=== PATIENT | female | born 1980 | race Caucasian/White ===

== ENCOUNTER 2018-11-01 18:45 | Inpatient (IN) | payer SELFPAY ==
[2018-11-01] MEDS ORDERED: NA CHLORIDE 0.9% 1,000 ML ONE (19:34)
[2018-11-01] MEDS ORDERED: IBUPROFEN 400 MG TAB ONE (19:34)
--- NOTE | 2018-11-01 19:37 | RAD REPORT ---
EXAM DESCRIPTION: Shi Single View11/01/2018 7:31 pm CLINICAL HISTORY: Chest pain COMPARISON: none FINDINGS: The lungs appear clear of acute infiltrate. The heart is normal size IMPRESSION: No acute abnormalities displayed
[2018-11-01 20:36] LABS: Absolute Lymphocytes (CBC) 3.2 K/uL (0.7-4.9); Absolute Monocytes 1.1 K/uL (0.1-1.3); Absolute Neutrophil 7.4 K/uL (1.8-8.0); Basophils % 1.1 % (0-1.3); Eosinophils % 4.6 % (0-4.4); Hematocrit 43.5 % (36.0-45.0); Lymphocytes % 25.5 % (15.3-44.8); MPV 7.7 fL (7.6-11.3); RBC Red Blood Cell Count 4.93 M/uL (3.86-4.86)
[2018-11-01] MEDS ORDERED: METOPROLOL TAR 25 MG TAB ONE (20:37)
[2018-11-01] MEDS ORDERED: ASPIRIN 81 MG CHEWABLE TABLET ONE (20:37)
[2018-11-01 20:55] LABS: BUN Blood Urea Nitrogen 14 mg/dL (7-18); Bicarbonate 27 mmol/L (21-32); Glucose Level 83 mg/dL (74-106); NT PRO-BNP 122 pg/mL (<125); Potassium 3.7 mmol/L (3.5-5.1); Sodium Level 141 mmol/L (136-145); Troponin (Emerg Dept Use Only) < 0.02 ng/mL (0.0-0.045)
--- NOTE | 2018-11-01 22:02 | EDPHYS ---
Physician Documentation [facility] Name: Brit Jenkins Age: 38 yrs Sex: Female : 1980 Arrival Date: 11/01/2018 Time: 18:46 Bed 2 Private MD: ED Physician Willem Jimenez HPI: 11/01 21:58 This 38 yrs old Female presents to ER via Ambulatory with complaints of rn Dizziness, Elevated Heart Rate, Back Pain. 21:58 The patient presents with a history of heart racing. Onset: The symptoms/episode rn began/occurred today. Duration: The patient or guardian reports multiple episodes. Modifying factors: The symptoms are aggravated by nothing. The symptoms are alleviated by nothing. Severity of symptoms: At their worst the symptoms were moderate in the emergency department the symptoms have improved. The patient has not experienced similar symptoms in the past. Reports began today with palpitations, dizziness, sob, intermittent episodes, no previous cardiac history and no famhx of early cardiac problems, currently feels fine.. 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: 23:31 LMP N/A - Irregular menses jd3 Historical: - Allergies: 18:53 methylergonovine maleate; sv 18:53 pseudoephedrine HCl; sv 18:53 dexamethasone sod phosphate; sv 18:53 Ciprofloxacin HCl; sv 18:53 Cephalexin Monohydrate; sv 18:53 Latex, Natural Rubber; sv 18:53 Sulfa (Sulfonamide Antibiotics); sv 18:53 trimethoprim; sv - Home Meds: 23:29 Benadryl 25 mg Oral cap 2 caps nightly [Active]; risperidone 2 mg oral tab 1 tab 2 fc times per day [Active]; Zantac 150 mg Oral tab 1 tab 2 times per day [Active]; Shyla Allergy 180 mg oral tab 1 tab twice a day [Active]; - PMHx: 23:29 urticaria; Fibromyalgia; Insomnia; Angioedema; fc - PSHx: 18:53 D \T\ C; back; ; sv - Immunization history:: Adult Immunizations unknown. - Social history:: Smoking status: unknown. - Ebola Screening: : Patient negative for fever greater than or equal to 101.5 degrees Fahrenheit, and additional compatible Ebola Virus Disease symptoms. - Family history:: not pertinent. - Hospitalizations: : No recent hospitalization is reported. ROS: 21:58 Constitutional: Negative for fever, chills, and weight loss, Eyes: Negative for injury, rn pain, redness, and discharge, Neck: Negative for injury, pain, and swelling, Cardiovascular: Negative for edema, Respiratory: Negative for shortness of breath, cough, wheezing, and pleuritic chest pain, Abdomen/GI: Negative for abdominal pain, nausea, vomiting, diarrhea, and constipation, MS/Extremity: Negative for injury and deformity, Skin: Negative for injury, rash, and discoloration, Neuro: Negative for headache, numbness, tingling, and seizure. Exam: 21:58 Constitutional: This is a well developed, well nourished patient who is awake, alert, rn and in no acute distress. Head/Face: Normocephalic, atraumatic. Eyes: Pupils equal round and reactive to light, extra-ocular motions intact. Lids and lashes normal. Conjunctiva and sclera are non-icteric and not injected. Cornea within normal limits. Periorbital areas with no swelling, redness, or edema. Cardiovascular: Tachycardic, irregular, no murmur Respiratory: Lungs have equal breath sounds bilaterally, clear to auscultation Abdomen/GI: soft, non-tender Skin: Warm, dry with normal turgor. Normal color with no rashes, no lesions, and no evidence of cellulitis. MS/ Extremity: Pulses equal, no cyanosis. Neurovascular intact. Full, normal range of motion. Equal circumference. Neuro: Awake and alert, GCS 15, oriented to person, place, time, and situation. Cranial nerves II-XII grossly intact. Motor strength 5/5 in all extremities. Sensory grossly intact. Vital Signs: 18:54 BP 123 / 85; Pulse 107; Resp 20; Temp 99.3; Pulse Ox 97% ; Weight 117.93 kg; Height 5 sv ft. 4 in. (162.56 cm); Pain 4/10; 19:15 BP 100 / 73; Pulse 101; Resp 18 S; Pulse Ox 97% on R/A; jd3 20:13 BP 122 / 81; Pulse 115; Resp 19 S; Pulse Ox 99% on R/A; jd3 21:07 BP 109 / 66; Pulse 93; Resp 18 S; Pulse Ox 97% on R/A; jd3 22:00 BP 102 / 67; Pulse 82; Resp 16 S; Pulse Ox 97% on R/A; jd3 22:30 BP 112 / 85; Pulse 105; Resp 16 S; Pulse Ox 97% on R/A; jd3 23:31 BP 110 / 70; Pulse 85; Resp 16 S; Pulse Ox 97% on R/A; jd3 18:54 Body Mass Index 44.63 (117.93 kg, 162.56 cm) sv MDM: 19:02 Patient medically screened. rn 21:58 Differential diagnosis: arrythmia, dehydration, stress disorder. Data reviewed: vital rn signs, nurses notes, lab test result(s), EKG, radiologic studies, plain films, and as a result, I will admit patient. Counseling: I had a detailed discussion with the patient and/or guardian regarding: the historical points, exam findings, and any diagnostic results supporting the discharge/admit diagnosis, lab results, radiology results, the need for further work-up and treatment in the hospital. Response to treatment: the patient's symptoms have mildly improved after treatment, and as a result, I will admit patient. Admission orders: after a detailed discussion of the patient's condition and case, the admit orders are written by me. 11/01 19:17 Order name: Basic Metabolic Panel; Complete Time: 21: rn 11/01 19:17 Order name: CBC with Diff; Complete Time: : rn 11/01 19:17 Order name: NT PRO-BNP; Complete Time: : 11/01 19:17 Order name: Troponin (emerg Dept Use Only); Complete Time: :30 11/01 19:17 Order name: TSH; Complete Time: : rn 11/01 19:17 Order name: T4 Free; Complete Time: :30 rn 11/01 19:17 Order name: [place] Screen Profile; Complete Time: 21:30 rn 11/01 19:17 Order name: Flu rn 11/01 19:17 Order name: Strep rn 11/01 19:18 Order name: Blood Culture Adult (2) rn 11/01 22:09 Order name: Urine Dipstick--Ancillary (enter results) mi 11/01 22:18 Order name: Throat Culture [facility] 11/01 23:00 Order name: Lipid Profile [facility] 11/01 23:00 Order name: Lipid Profile [facility] 11/01 19:02 Order name: EKG; Complete Time: 19:02 sv 11/01 19:02 Order name: EKG - Nurse/Tech; Complete Time: 19:17 sv 11/01 19:17 Order name: XRAY Chest (1 view); Complete Time: 19:48 rn 11/01 22:59 Order name: CONS Physician Consult [facility] 11/01 22:59 Order name: Heart Healthy [facility] 11/01 22:59 Order name: EKG Electrocardiogram [facility] 11/01 23:00 Order name: EKG Electrocardiogram [facility] 11/01 23:00 Order name: Troponin I [facility] 11/01 23:00 Order name: Troponin I [facility] 11/01 23:00 Order name: Troponin I [facility] 11/01 23:01 Order name: T4 Free [facility] 11/01 23:01 Order name: Thyroid Stimulating Hormone [facility] 11/01 19:17 Order name: Cardiac monitoring; Complete Time: 19:19 rn 11/01 19:17 Order name: IV Saline Lock; Complete Time: 21:50 rn 11/01 19:17 Order name: Labs collected and sent; Complete Time: 21:50 rn 11/01 19:17 Order name: O2 Per Protocol; Complete Time: 19:19 rn 11/01 19:17 Order name: O2 Sat Monitoring; Complete Time: 19:19 rn Administered Medications: 19:50 Drug: Motrin 800 mg Route: PO; jd3 23:32 Follow up: Response: No adverse reaction jd3 20:34 Drug: Metoprolol 25 mg Route: PO; jd3 23:33 Follow up: Response: No adverse reaction jd3 20:34 Drug: Aspirin Chewable Tablet 324 mg Route: PO; jd3 23:33 Follow up: Response: No adverse reaction jd3 21:37 Drug: NS 0.9% 1000 ml Route: IV; Rate: 1000 ml; Site: right antecubital; jd3 Disposition: 11/01/18 22:00 Hospitalization ordered by Dee Rossi for Inpatient Admission. Preliminary diagnosis are Paroxysmal atrial fibrillation, Chest pain, unspecified. - Bed requested for Telemetry/MedSurg (Inpatient). - Status is Inpatient Admission. ed1 - Condition is Stable. - Problem is new. - Symptoms have improved. UTI on Admission? No Signatures: Dispatcher [employer] Nichole Palma RN RN Lara Zamora, RN RN Willem Jimenez MD MD rn Riggs, Erika RN RN ed1 Anahi Fuller, RN RN Luis Fernando Fisher, RN RN jd3 Corrections: (The following items were deleted from the chart) 23:21 22:00 Hospitalization Ordered by Dee Rossi MD for Inpatient Admission. Preliminary cg diagnosis is Paroxysmal atrial fibrillation; Chest pain, unspecified. Bed requested for Telemetry/MedSurg (Inpatient). Status is Inpatient Admission. Condition is Stable. Problem is new. Symptoms have improved. UTI on Admission? No. rn 23:29 18:53 PMHx: None; [facility] 23:46 23:21 11/01/2018 22:00 Hospitalization Ordered by Dee Rossi MD for Inpatient ed1 Admission. Preliminary diagnosis is Paroxysmal atrial fibrillation; Chest pain, unspecified. Bed requested for Telemetry/MedSurg (Inpatient). Status is Inpatient Admission. Condition is Stable. Problem is new. Symptoms have improved. UTI on Admission? No. cg
--- NOTE | 2018-11-01 22:02 | ER ---
Nurse's Notes [facility] Name: Brit Jenkins Age: 38 yrs Sex: Female : 1980 Arrival Date: 11/01/2018 Time: 18:46 Bed 2 Private MD: Diagnosis: Paroxysmal atrial fibrillation;Chest pain, unspecified Presentation: 11/01 18:51 Presenting complaint: Patient states: midsternal chest pain that radiates to the back sv in between shoulder blade, SOB, dizziness x 3 days, "heart racing off and on started today.". Transition of care: patient was not received from another setting of care. Onset of symptoms was November 01, 2018. Care prior to arrival: None. 18:51 Method Of Arrival: Ambulatory sv 18:51 Acuity: MONIKA 3 sv 20:01 Risk Assessment: Do you want to hurt yourself or someone else? Patient reports no jd3 desire to harm self or others. Initial Sepsis Screen: Does the patient meet any 2 criteria? HR > 90 bpm. No. Patient's initial sepsis screen is negative. Does the patient have a suspected source of infection? No. Patient's initial sepsis screen is negative. Triage Assessment: 18:54 General: Appears in no apparent distress. uncomfortable, obese, Behavior is calm, sv cooperative, appropriate for age. Pain: Complains of pain in mid-sternal area Pain radiates to thoracic area Pain currently is 4 out of 10 on a pain scale. Neuro: Level of Consciousness is awake, alert, obeys commands, Oriented to person, place, time, situation, Moves all extremities. Full function Gait is steady. Respiratory: Respiratory effort is even, unlabored, Respiratory pattern is regular, symmetrical. Derm: Skin is pink, warm \\T\\ dry. 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 LMP N/A - Irregular menses jd3 Historical: - Allergies: 18:53 methylergonovine maleate; sv 18:53 pseudoephedrine HCl; sv 18:53 dexamethasone sod phosphate; sv 18:53 Ciprofloxacin HCl; sv 18:53 Cephalexin Monohydrate; sv 18:53 Latex, Natural Rubber; sv 18:53 Sulfa (Sulfonamide Antibiotics); sv 18:53 trimethoprim; sv - Home Meds: 23:29 Benadryl 25 mg Oral cap 2 caps nightly [Active]; risperidone 2 mg oral tab 1 tab 2 fc times per day [Active]; Zantac 150 mg Oral tab 1 tab 2 times per day [Active]; Shyla Allergy 180 mg oral tab 1 tab twice a day [Active]; - PMHx: 23:29 urticaria; Fibromyalgia; Insomnia; Angioedema; fc - PSHx: 18:53 D \\T\\ C; back; ; sv - Immunization history:: Adult Immunizations unknown. - Social history:: Smoking status: unknown. - Ebola Screening: : Patient negative for fever greater than or equal to 101.5 degrees Fahrenheit, and additional compatible Ebola Virus Disease symptoms. - Family history:: not pertinent. - Hospitalizations: : No recent hospitalization is reported. Screenin:06 Abuse screen: Denies threats or abuse. Nutritional screening: No deficits noted. jd3 Tuberculosis screening: No symptoms or risk factors identified. Fall Risk Ambulatory Aid- None/Bed Rest/Nurse Assist (0 pts). Gait- Normal/Bed Rest/Wheelchair (0 pts) Mental Status- Oriented to own ability (0 pts). Total Dean Fall Scale indicates No Risk (0-24 pts). Assessment: 19:05 General: Appears uncomfortable, Behavior is cooperative, appropriate for age, anxious. jd3 Pain: Complains of pain in chest Quality of pain is described as pressure. Neuro: Level of Consciousness is awake, alert, obeys commands, Oriented to person, place, time, situation. Cardiovascular: Heart tones S1 S2 present Capillary refill < 3 seconds Patient's skin is warm and dry. Rhythm is irregular. Respiratory: Reports shortness of breath Airway is patent Respiratory effort is even, unlabored, Respiratory pattern is regular, symmetrical, Breath sounds are clear bilaterally. GI: No signs and/or symptoms were reported involving the gastrointestinal system. : No signs and/or symptoms were reported regarding the genitourinary system. EENT: No signs and/or symptoms were reported regarding the EENT system. Derm: Skin is intact, Skin is dry, Skin is normal, Skin temperature is warm. Musculoskeletal: Circulation, motion, and sensation intact. Range of motion: intact in all extremities. 20:08 Reassessment: Patient appears in no apparent distress at this time. No changes from jd3 previously documented assessment. Patient and/or family updated on plan of care and expected duration. Pain level reassessed. Patient is alert, oriented x 3, equal unlabored respirations, skin warm/dry/pink. 21:06 Reassessment: Patient appears in no apparent distress at this time. No changes from jd3 previously documented assessment. Patient and/or family updated on plan of care and expected duration. Pain level reassessed. Patient is alert, oriented x 3, equal unlabored respirations, skin warm/dry/pink. 22:05 Reassessment: Patient appears in no apparent distress at this time. Patient and/or jd3 family updated on plan of care and expected duration. Pain level reassessed. Patient is alert, oriented x 3, equal unlabored respirations, skin warm/dry/pink. 22:44 Reassessment: Patient appears in no apparent distress at this time. Patient and/or jd3 family updated on plan of care and expected duration. Pain level reassessed. Patient is alert, oriented x 3, equal unlabored respirations, skin warm/dry/pink. 23:32 Reassessment: Patient appears in no apparent distress at this time. Patient and/or jd3 family updated on plan of care and expected duration. Pain level reassessed. Patient is alert, oriented x 3, equal unlabored respirations, skin warm/dry/pink. Patient denies pain at this time. Vital Signs: 18:54 BP 123 / 85; Pulse 107; Resp 20; Temp 99.3; Pulse Ox 97% ; Weight 117.93 kg; Height 5 sv ft. 4 in. (162.56 cm); Pain 4/10; 19:15 BP 100 / 73; Pulse 101; Resp 18 S; Pulse Ox 97% on R/A; jd3 20:13 BP 122 / 81; Pulse 115; Resp 19 S; Pulse Ox 99% on R/A; jd3 21:07 BP 109 / 66; Pulse 93; Resp 18 S; Pulse Ox 97% on R/A; jd3 22:00 BP 102 / 67; Pulse 82; Resp 16 S; Pulse Ox 97% on R/A; jd3 22:30 BP 112 / 85; Pulse 105; Resp 16 S; Pulse Ox 97% on R/A; jd3 23:31 BP 110 / 70; Pulse 85; Resp 16 S; Pulse Ox 97% on R/A; jd3 18:54 Body Mass Index 44.63 (117.93 kg, 162.56 cm) ED Course: 18:46 Patient arrived in ED. as 18:52 Triage completed. sv 18:54 Arm band placed on. sv 19:02 Willem Jimenez MD is Attending Physician. rn 19:17 Luis Fernando Fisher RN is Primary Nurse. jd3 19:31 XRAY Chest (1 view) In Process Unspecified. EDMS 19:55 Missed attempt(s): 20 gauge in right antecubital area. Bleeding controlled, band aid jd3 applied, catheter tip intact. 20:11 Patient has correct armband on for positive identification. Bed in low position. Call jd3 light in reach. Side rails up X 1. Adult w/ patient. 20:11 child monitor on. Pulse ox on. NIBP on. jd3 20:43 Missed attempt(s): 22 gauge in left hand. Missed attempt(s): 22 gauge in left hand. lp1 21:30 Inserted 18 gauge 10 cm midline to right basilic vein on first attempt. Line with good fc blood return and flushes well. Pt tolerated it well. 22:00 Dee Rossi MD is Hospitalizing Provider. rn 23:30 No provider procedures requiring assistance completed. Patient admitted, IV remains in jd3 place. Administered Medications: 19:50 Drug: Motrin 800 mg Route: PO; jd3 23:32 Follow up: Response: No adverse reaction jd3 20:34 Drug: Metoprolol 25 mg Route: PO; jd3 23:33 Follow up: Response: No adverse reaction jd3 20:34 Drug: Aspirin Chewable Tablet 324 mg Route: PO; jd3 23:33 Follow up: Response: No adverse reaction jd3 21:37 Drug: NS 0.9% 1000 ml Route: IV; Rate: 1000 ml; Site: right antecubital; jd3 Outcome: 22:00 Decision to Hospitalize by Provider. rn 23:30 Admitted to Tele accompanied by tech, via wheelchair, room 219, with chart, Report jd3 called to Dino DAWKINS 23:30 Condition: stable 23:30 Instructed on the need for admit, Demonstrated understanding of instructions. 23:46 Patient left the ED. ed1 Signatures: Dispatcher [employer] EDMS Nichole Floyd RN RN sv Chretien, Felicia, RN RN fc Martinez, Amelia as Nieto, Roman, MD MD rn Riggs, Ane, RN RN ed1 Noelle Garrett RN RN lp1 Luis Fernando Fisher RN RN jd3 Corrections: (The following items were deleted from the chart) 20:10 20:10 BP 100 / 73; Pulse 101bpm; Resp 18bpm; Spontaneous; Pulse Ox 97% RA; jd3 jd3 23:29 18:53 PMHx: None; sv fc
[2018-11-01 22:19] LABS: Urine Blood NEGATIVE (NEG); Urine Glucose NEGATIVE (NEG); Urine Protein NEGATIVE (NEG)
[2018-11-01] MEDS ORDERED: ACETAMINOPHEN 500 MG TAB PO PRN (22:53)
[2018-11-01] MEDS ORDERED: ALPRAZOLAM 0.25 MG TABLET PO PRN (22:53)
[2018-11-01] MEDS ORDERED: MORPHINE 4 MG/ML SYR IV PRN (22:53)
[2018-11-01] MEDS: METOPROLOL TAR 50 MG TAB PO SCH (23:00)
[2018-11-02 00:01] VITALS: BMI 47.5
[2018-11-02] MEDS ORDERED: METOPROLOL TAR 25 MG TAB PO ONE (00:27)
[2018-11-02 03:42] VITALS: O2SAT 96
[2018-11-02 05:39] VITALS: BP 101/54; TEMP 96.8
--- NOTE | 2018-11-02 05:50 | EKG ---
Test Date: 2018-11-01 Test Time: 20:00:03 Associate Professor Of Kinesiology: HEMANT MEASUREMENT RESULTS: Intervals: Rate: 161 IN: QRSD: 78 QT: 254 QTc: 415 [place]iskey: P: IN: QRS: 77 T: -30 INTERPRETIVE STATEMENTS: Supraventricular tachycardia with termination and resumption of sinus rhythm Possible Anterior infarct, age undetermined Abnormal ECG Compared to ECG 11/01/2018 19:00:40 Myocardial infarct finding now present Supraventricular tachycardia is now present Sinus tachycardia no longer present Electronically Signed On 11-02-18 05:50:02 MACHINE JOINER CEMENTER by Isaias Navarro
--- NOTE | 2018-11-02 05:51 | EKG ---
Test Date: 2018-11-01 Test Time: 19:00:40 Lens Shaper Grinder: HEMANT MEASUREMENT RESULTS: Intervals: Rate: 112 ME: 126 QRSD: 80 QT: 320 QTc: 436 [place]den: P: 41 ME: 126 QRS: 118 T: 37 INTERPRETIVE STATEMENTS: Sinus tachycardia Low voltage QRS Left posterior fascicular block Abnormal ECG No previous ECG available for comparison Electronically Signed On 11-02-18 05:50:18 PAIN COORDINATOR by Isaias Navarro
[2018-11-02] MEDS ORDERED: INFLUENZA VACCINE (for 3y+) 0.5 ML DOSE IMVAC ONE (08:00)
[2018-11-02] MEDS: METOPROLOL TAR 50 MG TAB PO SCH (08:57)
[2018-11-02] MEDS ORDERED: ASPIRIN EC 81 MG TAB PO SCH (09:00)
[2018-11-02] MEDS ORDERED: ENOXAPARIN 100 MG/ML SYR SQ SCH (09:00)
[2018-11-02] MEDS ORDERED: RISPERIDONE 1 MG TABLET PO SCH (09:00)
[2018-11-02 12:01] LABS: Barbiturates NEGATIVE (NEGATIVE); Benzodiazepines NEGATIVE (NEGATIVE); Cocaine NEGATIVE (NEGATIVE); METHAMPHETAM NEGATIVE (NEGATIVE); Methadone NEGATIVE (NEGATIVE); Opiates NEGATIVE (NEGATIVE); Phencyclidine NEGATIVE (NEGATIVE); THC Cannibis NEGATIVE (NEGATIVE)
--- NOTE | 2018-11-02 12:11 | CON ---
Chief Complaint: Heart racing. History Of Present Illness: Mrs. Jenkins came to the hospital. She appeared to be in SVT. It is possible that it was atrial flutter, but we saw an EKG when it terminated. I would think this is [place] variety AV node reentrant SVT. The patient has a history of heart fluttering and she has never sought attention before. Yesterday, she was under more distress, drinking more coffee than usual, sl eeping less, went into rhythm. Now, she is in sinus rhythm and feels back to normal. She does not h ave diabetes. She has hypertension, but usually, her blood pressure is good and presently she is not on an antihypertensive. She takes Risperdal, ranitidine, Shyla, and diphenhydramine. She has an allergy to cephalexin and Cipro. She uses tobacco. She is morbidly obese. Physical Examination: Vital Signs: 5 feet 4, 276 pounds, blood pressure 101/54, temperature 96.8. HEENT: Normal. Lungs: Clear. Heart: Within normal limits. Abdomen: Soft. Extremities: Normal. Normal pulses. Impression: Mrs. Jenkins has paroxysmal supraventricular tachycardia. I would like to see her go home with the pill in the pocket program of metoprolol 50 mg, not the slow release type to be used i f she has a spell. If she sees me in followup, we will discuss the pros and cons of continuing that therapy versus undergoing an ablation. At this point, I think s he is ready to be discharged home. PRASANNA/SHIRA Voice ID: [id number] Report ID: [id number]
--- NOTE | 2018-11-02 12:19 | ECHO ---
HEIGHT: 5 ft 4 in WEIGHT: 276 lb 14.4 oz DATE OF STUDY: 11/02/[address]: Dee Rossi MD 2-DIMENSIONAL: YES M.MODE: YES DOPPLER: YES COLOR FLOW: YES TDS: NO PORTABLE: NO DEFINITY: NO BUBBLE STUDY: NO DIAGNOSIS: ATRIAL FIBRILLATION CARDIAC HISTORY: CATHERIZATION: NO SURGERY: NO PROSTHETIC VALVE: NO PACEMAKER: NO MEASUREMENTS (cm) DIASTOLIC (NORMALS) SYSTOLIC (NORMALS) IVSd 1.1 (0.6-1.2) LA Diam 3.5 (1.9-4.0) LVEF 57% LVIDd 5.0 (3.5-5.7) LVIDs 3.5 (2.0-3.5) %FS 30% LVPWd 1.0 (0.6-1.2) Ao Diam 2.7 (2.0-3.7) 2 DIMENSIONAL ASSESSMENT: RIGHT ATRIUM: NORMAL LEFT ATRIUM: NORMAL RIGHT VENTRICLE: NORMAL LEFT VENTRICLE: NORMAL TRICUSPID VALVE: NORMAL MITRAL VALVE: NORMAL PULMONIC VALVE: NORMAL AORTIC VALVE: NORMAL PERICARDIAL EFFUSION: NONE AORTIC ROOT: NORMAL LEFT VENTRICULAR WALL MOTION: NORMAL DOPPLER/COLOR FLOW: NORMAL COMMENTS: NORMAL 2D ECHOCARDIOGRAM WITH DOPPLER. TECHNOLOGIST: Marc WATSON
--- NOTE | 2018-11-02 12:21 | EKG ---
Test Date: 2018-11-02 Test Time: 00:45:01 Nurse Recruiter: RT MEASUREMENT RESULTS: Intervals: Rate: 88 OH: 146 QRSD: 92 QT: 356 QTc: 430 Gilchrist: P: 22 OH: 146 QRS: 80 T: 20 INTERPRETIVE STATEMENTS: Normal sinus rhythm Low voltage QRS Cannot rule out Anterior infarct, age undetermined Abnormal ECG Compared to ECG 11/01/2018 20:00:03 Low QRS voltage now present Supraventricular tachycardia no longer present Myocardial infarct finding still present Electronically Signed On 11-02-18 12:20:47 MECHANICAL DESIGN ENGINEER by Isaias Navarro
--- NOTE | 2018-11-02 16:00 | P.SSS ---
Patient History Date of Service: 11/02/18 History of Present Illness: Mrs. Jenkins came to the hospital. She appeared to be in SVT. The patient has a history of heart fluttering and she has never sought attention before. Yesterday, she was under more distress, drinking more coffee than usual, sleeping less, went into rhythm. Now, she is in sinus rhythm and feels back to normal. She does not have diabetes. She has hypertension, but usually, her blood pressure is good and presently she is not on an antihypertensive. She takes Risperdal, ranitidine, Shyla, and diphenhydramine. She has an allergy to cephalexin and Cipro. She uses tobacco. She is morbidly obese. Allergies cephalexin monohydrate [From Keflex] Allergy (Verified 11/02/18 00:02) Hives/Rash ciprofloxacin [From Cipro] Allergy (Verified 11/02/18 00:02) Hives/Rash ciprofloxacin HCl [From Cipro] Allergy (Verified 11/02/18 00:02) Hives/Rash dexamethasone [From Decadron] Allergy (Verified 11/02/18 00:02) Shortness of breath dexamethasone sod phosphate [From Decadron] Allergy (Verified 11/02/18 00:02) Shortness of breath Latex, Natural Rubber Allergy (Verified 11/02/18 00:02) Rash methylergonovine maleate [From Methergine] Allergy (Verified 11/02/18 00:02) Anaphylaxis pseudoephedrine HCl [From Sudafed] Allergy (Verified 11/02/18 00:02) Nausea/Vomiting Sulfa (Sulfonamide Antibiotics) Allergy (Verified 11/02/18 00:02) Nausea/Vomiting sulfamethoxazole [From Bactrim] Allergy (Verified 11/02/18 00:02) Nausea/Vomiting trimethoprim [From Bactrim] Allergy (Verified 11/02/18 00:02) Itching/Hives/Rash Ephedrine Sulfate Allergy (Uncoded 11/02/18 00:02) Unknown MMR vaccine Allergy (Uncoded 11/02/18 00:02) Anaphylaxis Home Medications: Risperidone [Risperdal] 2 mg PO BID 11/01/18 Metoprolol Tartrate [Lopressor*] 25 mg PO BID #60 tab 11/02/18 - Past Medical/Surgical History Has patient received pneumonia vaccine in the past: No Diabetic: No -: insomnia -: fibromyalgia -: angioedema -: Urticaria -: d & C -: back surg -: - Social History Smoking Status: Current every day smoker Alcohol use: Yes CD- Drugs: No Caffeine use: Yes Place of Residence: Home Review of Systems 10-point ROS is otherwise unremarkable Physical Examination - Vital Signs Temperature: 96.8 F Blood Pressure: 101/54 Pulse: 80 Respirations: 18 Pulse Ox (%): 95 - Physical Exam General: Alert, In no apparent distress HEENT: Atraumatic, PERRLA, Mucous membr. moist/pink, EOMI, Sclerae nonicteric Neck: Supple, 2+ carotid pulse no bruit, No LAD, Without JVD or thyroid abnormality Respiratory: Clear to auscultation bilaterally, Normal air movement Cardiovascular: Regular rate/rhythm, Normal S1 S2 Gastrointestinal: Normal bowel sounds, No tenderness Musculoskeletal: No tenderness Integumentary: No rashes Neurological: Normal gait, Normal speech, Normal strength at 5/5 x4 extr, Normal tone, Normal affect Lymphatics: No axilla or inguinal lymphadenopathy - Studies Laboratory Data (last 24 hrs) 11/01/18 20:16: WBC 12.4 H, Hgb 14.6, Hct 43.5, Plt Count 345 11/01/18 20:16: Sodium 141, Potassium 3.7, BUN 14, Creatinine 0.80, Glucose 83 Microbiology Data (last 24 hrs): 11/01/18 21:30 Nasopharnyx Influenza Type A Antigen Screen - Final 11/01/18 21:30 Nasopharnyx Influenza Type B Antigen Screen - Final 11/01/18 21:30 Throat Group A Streptococcus Rapid Screen - Final - Diagnosis (Problem(s)) (1) Atrial fibrillation with rapid ventricular response Status: Acute (2) Bipolar 2 disorder Status: Acute Treatment Summary: Overall during the hospital stay patient remained stable Patient was initially admitted to the hospital for having palpitation was found to have SVT most likely atrial flutter. Cardiology was consulted echocardiogram was done which was within normal limits. Cardiology recommended the patient be discharged home on metoprolol 50 mg daily p.r.n. and her home medications be adjusted that she takes for muscle relaxer and bipolar disease. Patient was asked to continue her Risperdal however discontinue taking her Benadryl another medication that she used to sleep. Patient was also asked to follow up with cardiology in about 1-2 days post discharge. Patient has a score is less than 2 at this time. Patient does not need any anti coagulation at this time as she might just have paroxysmal atrial fibrillation. Patient to follow up with primary care provider and cardiology for closer monitoring and chronic management of her paroxysmal AFib. - Disposition Condition: GOOD Diet: Regular Activity: Ad noemí
--- NOTE | 2018-11-02 20:32 | P.HP ---
Certification for Inpatient Patient admitted to: Inpatient With expected LOS: >2 Midnights Patient will require the following post-hospital care: None Practitioner: I am a practitioner with admitting privileges, knowledge of patient current condition, hospital course, and medical plan of care. Services: Services provided to patient in accordance with Admission requirements found in Title 42 Section 412.3 of the Code of Federal Regulations Patient History Date of Service: 11/01/18 Reason for admission: SVT versus atrial fibrillation History of Present Illness: patient is a 38-year-old female came to the hospital with palpitations. She was short of breath and difficulty breathing. She came in the hospital for further evaluation. She was found to be in AFib versus SVT. Our EKG strip that we had showed sinus tach. She was admitted to the hospital for further evaluation. Allergies cephalexin monohydrate [From Keflex] Allergy (Verified 11/02/18 00:02) Hives/Rash ciprofloxacin [From Cipro] Allergy (Verified 11/02/18 00:02) Hives/Rash ciprofloxacin HCl [From Cipro] Allergy (Verified 11/02/18 00:02) Hives/Rash dexamethasone [From Decadron] Allergy (Verified 11/02/18 00:02) Shortness of breath dexamethasone sod phosphate [From Decadron] Allergy (Verified 11/02/18 00:02) Shortness of breath Latex, Natural Rubber Allergy (Verified 11/02/18 00:02) Rash methylergonovine maleate [From Methergine] Allergy (Verified 11/02/18 00:02) Anaphylaxis pseudoephedrine HCl [From Sudafed] Allergy (Verified 11/02/18 00:02) Nausea/Vomiting Sulfa (Sulfonamide Antibiotics) Allergy (Verified 11/02/18 00:02) Nausea/Vomiting sulfamethoxazole [From Bactrim] Allergy (Verified 11/02/18 00:02) Nausea/Vomiting trimethoprim [From Bactrim] Allergy (Verified 11/02/18 00:02) Itching/Hives/Rash Ephedrine Sulfate Allergy (Uncoded 11/02/18 00:02) Unknown MMR vaccine Allergy (Uncoded 11/02/18 00:02) Anaphylaxis Home Medications: Risperidone [Risperdal] 2 mg PO BID 11/01/18 Metoprolol Tartrate [Lopressor*] 25 mg PO BID #60 tab 11/02/18 - Past Medical/Surgical History Has patient received pneumonia vaccine in the past: No Diabetic: No -: insomnia -: fibromyalgia -: angioedema -: Urticaria -: d & C -: back surg -: - Family History Mother Family History: Reviewed- Non-Contributory - Social History Smoking Status: Current every day smoker Alcohol use: Yes CD- Drugs: No Caffeine use: Yes Place of Residence: Home Review of Systems 10-point ROS is otherwise unremarkable Physical Examination - Vital Signs Temperature: 96.8 F Blood Pressure: 101/54 Pulse: 80 Respirations: 18 Pulse Ox (%): 95 - Physical Exam General: Alert, In no apparent distress, Oriented x3 HEENT: Atraumatic, PERRLA, Mucous membr. moist/pink, EOMI, Sclerae nonicteric Neck: Supple, 2+ carotid pulse no bruit, No LAD, Without JVD or thyroid abnormality Respiratory: Clear to auscultation bilaterally, Normal air movement Cardiovascular: Regular rate/rhythm, Normal S1 S2, No murmurs Gastrointestinal: Normal bowel sounds, Soft and benign, Non-distended, No tenderness Musculoskeletal: No clubbing, No swelling, No tenderness Integumentary: No rashes Neurological: Normal gait, Normal speech, Normal strength at 5/5 x4 extr, Normal tone, Sensation intact, Cranial nerves 3-12 intact, Normal affect Lymphatics: No axilla or inguinal lymphadenopathy - Studies Laboratory Data (last 24 hrs) 11/01/18 20:16: WBC 12.4 H, Hgb 14.6, Hct 43.5, Plt Count 345 11/01/18 20:16: Sodium 141, Potassium 3.7, BUN 14, Creatinine 0.80, Glucose 83 Microbiology Data (last 24 hrs): 11/01/18 21:30 Nasopharnyx Influenza Type A Antigen Screen - Final 11/01/18 21:30 Nasopharnyx Influenza Type B Antigen Screen - Final 11/01/18 21:30 Throat Group A Streptococcus Rapid Screen - Final Assessment & Plan - Problems (Diagnosis) (1) Atrial fibrillation with rapid ventricular response Status: Acute (2) Bipolar 2 disorder Status: Acute (3) Sleep apnea Status: Acute - Plan 1. Will continue medications for rate control and anticoagulation 2. Continue with strict blood pressure control 3. Echocardiogram 4. Cardiology consultation 5. Repeat chest x-ray 6. GI and DVT prophylaxis Discharge Plan: Home Plan to discharge in: 48 Hours - Advance Directives Does patient have a Living Will: No Does patient have a Durable POA for Healthcare: No - Code Status/Comfort Care Code Status Assessed: Yes Code Status: Full Code Critical Care: No Time Spent Managing PTS Care (In Minutes): 45
== END 2018-11-02 14:30 | disposition home or self-care (01) | DRG 309 ==
LOC: ER 18:45 → ERHOLD 22:54 → 2ND 23:33
PROVIDERS: ADMIT Hospitalist; ATTEND Family Medicine
DX: I48.0 Paroxysmal atrial fibrillation (principal); F31.81 Bipolar II disorder; Z68.42 Body mass index [BMI] 45.0-49.9, adult; G47.00 Insomnia, unspecified; M79.7 Fibromyalgia; Z72.0 Tobacco use; G47.30 Sleep apnea, unspecified; I10 Essential (primary) hypertension; E66.01 Morbid (severe) obesity due to excess calories
CPT/HCPCS: 36415; 71045; 80048; 80061; 80307; 81003; 83880; 84439; 84443; 84484; 85025; 86308; 87040; 87070; 87081; 87804; 93005; 93306; 99285; J1650; J7030